=== PATIENT | female | born 1950 | race Caucasian/White ===

== ENCOUNTER 2023-11-06 08:38 | Inpatient (IN) | payer MEDICARE, OTHER, SELFPAY ==
[2023-11-04] VITALS (9 sets, daily range): BP systolic 96–142; BP diastolic 52–93; BMI 19.1
--- NOTE | 2023-11-04 11:52 | ED.GENMED ---
History of Present Illness
General
Chief Complaint: Failure to Thrive
Time Seen by Provider: 11/04/23 11:32
Travel History
Have you had any contact with someone who has COVID-19?: No
Do you have any symptoms of coronavirus? Fever > 100 degrees, chills, cough, shortness of breath, sore throat, loss of taste or smell, muscle aches, or headache?: No
History of Present Illness
History of Present Illness:
72-year-old female with history of widely metastatic lung cancer presents to the emergency department for evaluation of fatigue and poor p.o. intake. Resides at home with her son, he states that they are unable to get her to eat and drink and she
has progressively gotten weaker and weaker. Current ongoing chemotherapy through [facility]. Patient also reports progressive worsening right upper quadrant abdominal pain that she feels is due to known liver mets.
Pt of Dr Reynolds at [facility]
Past History
Past History
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
ED Past Surgical History: Gynecological (Partial hysterectomy with stage IV cancer)
Social History
Tobacco: Former smoker
Alcohol: None
Family History
Family History: Other (Reviewed and noncontributory)
Review of Systems
Review of Systems
Allergies reviewed?: Yes
All Other Systems: ROS reviewed and negative except as documented in HPI and ROS
Phy Exam
Physical Exam
Physical Exam:
GEN: Frail, cachectic, chronically ill-appearing
Eyes: PERRLA, EOMs intact, no scleral icterus
HENT: NCAT, oral mucosa profoundly dry
Lungs: CTAB, no wheezes, rales, rhonchi, normal chest wall excursion
Cardiac: Tachycardic, regular
Abdomen: Visible hepatomegaly, markedly tender to palpation
Neuro: AO x 3
MSK: No gross deformity or ecchymosis. No edema. No digital clubbing
Skin: No rashes, petechiae. Normal color, no pallor or jaundice.
Psych: Calm, cooperative, proper hygiene
Course
Orders/Labs/Results
Orders:
Orders
11/04/23 11:51
0.9% Sodium Chloride 500 ml [Nss] 500 ml IV BOLUS
11/04/23 12:04
CPK [Creatine Phosphokinase] Urgent
Complete Blood Count/With Diff Urgent
Comprehensive Metabolic Panel Urgent
11/04/23 12:56
CT Abd/Pel (IV only)-DH only Urgent
Comment:
Reason For Exam: RUQ pain, known liver mets
11/04/23 13:14
Add On - Microbiology Urgent
Tests Added?: urinalysis reflex to culture
11/04/23 15:31
Admit/Transfer Patient As Directed
Co-Sign Provider:
Level of Care: Observation services
Assign to:: Medical/Surgical
Physician / Group: josie husain
Diagnosis: dehydration
Reason for Hospitalization: dehydration
ONCOLOGY CONSULT Routine
Consulting Provider: Deandra Hawley
Was physician already notified: Yes
11/04/23 15:32
Code Status As Directed
Resuscitation Status: Full Code
11/04/23 17:25
0.9% Sodium Chloride 1000 ml [Nss] 1,000 ml IV 125 mls/hr
Hydrocodone 5/APAP 325 [[place] 5/325] 1 tablet PO Q6HPRN PRN
11/04/23 17:25
Case Management Consult ONCE
Case Management Consult: Hospice
Hospice: Evaluation and treat
Activity As Directed
Activity Level: As Tolerated
Vital Signs As Directed
Frequency: Per unit guidelines
DX Deep Vein Thrombosis Video Routine
11/04/23 18:00
Enoxaparin Sodium [Lovenox] 40 mg SC QPM
11/05/23 Breakfast
Regular
Complete Blood Count/No Diff IN AM
Comprehensive Metabolic Panel IN AM
Occupational Therapy Consult [Ot Eval And Treat] IN AM
Physical Therapy Consult [Pt Eval And Treat] IN AM
Activity Level: As Tolerated
11/05/23 08:00
FOLic ACID [Folvite] 1 mg PO DAILY
Abnormal Lab Results
11/04/23
12:04
WBC 12.1 H 10^3/uL
(4.8-10.8)
RBC 3.48 L 10^6/uL
(4.20-5.40)
Hgb 10.8 L g/dL
(12.0-16.0)
Hct 31.5 L %
(37.0-47.0)
RDW 18.6 H %
(11.5-14.5)
Abs Immat Gran (auto) 0.1 H 10^3/uL
(0-0.05)
Absolute Neuts (auto) 10.9 H 10^3/uL
(1.4-6.5)
Absolute Lymphs (auto) 0.9 L 10^3/uL
(1.2-3.4)
Immature Gran % 1.1 H %
(0-0.5)
Neutrophils % 89.5 H %
(42.2-75.2)
Lymphocytes % 7.2 L %
(20.5-51.1)
Sodium 134 L mmol/L
(135-145)
Carbon Dioxide 33 H mmol/L
(22-30)
BUN 37 H mg/dl
(7-17)
Creatinine 0.4 L mg/dL
(0.6-1.0)
Glucose 103 H mg/dl
(70-99)
Calcium 11.8 H mg/dl
(8.4-10.2)
AST 137 H U/L
(14-36)
ALT 69 H U/L
(0-35)
Alkaline Phosphatase 409 H U/L
(38-126)
Creatine Kinase < 20 L U/L
(30-135)
Total Protein 5.9 L g/dl
(6.3-8.2)
11/04/23 12:04
11/04/23 12:04
Vital Signs
Initial and Last Documented VS:
Initial Vital Signs
Temp Pulse Resp BP Pulse Ox
98.0 F 119 20 105/58 98
11/04/23 11:19 11/04/23 11:19 11/04/23 11:19 11/04/23 11:19 11/04/23 11:19
Last Documented Vital Signs
Temp Pulse Resp BP Pulse Ox
98 F 101 22 96/56 92
11/04/23 17:40 11/04/23 17:40 11/04/23 17:40 11/04/23 17:40 11/04/23 17:40
MDM/Problems Addressed
MDM/Problems Addressed:
Patient looks quite frail and cachectic, not tolerating much p.o. fluid intake. CT suggest some degree of decrease in disease, will admit to the hospitalist service, patient may benefit from hospice or palliative care consultation at this point
*Critical Care Note
Total Time (30-74mins, 75-104mins- exclusive of procedures): Not Applicable
ED Attending Note
-
Portions of this chart may have been created with voice recognition software.� Occasional wrong word or��sound alike� substitutions may have occurred due to the inherent limitations of voice recognition software.
Discharge Plan
Departure
Patient Disposition: Admit
Date of Disposition: 11/04/23
Time of Disposition: 14:32
Admit to: Med/Surg
Presentation/result/management discussed w/ accepting MD/DO: Hospitalist
Discharge Problem:
Adult failure to thrive, Metastatic primary lung cancer
Interventions
Interventions:
*Risk Screen - Suicide Last Done: 11/04/23 13:32
*General Assessment Last Done: 11/04/23 13:32
*Neglect/Abuse Screening Last Done: 11/04/23 13:32
ED- Fall Risk Assessment Last Done: 11/04/23 13:32
*ED COVID-19 Vaccine History Last Done: 11/04/23 13:32
*Nursing Disposition Last Done: 11/04/23 17:20
Discharge Date and Time
Discharge Date/Time: 11/04/23 17:21
[2023-11-04 12:16] LABS: % Basophils 0.2 % (0-2); % Immature Granulocytes 1.1 % (0-0.5); % Lymphocytes 7.2 % (20.5-51.1); % Neutrophils 89.5 % (42.2-75.2); Absolute Immature Granulocytes 0.1 10^3/uL (0-0.05); Absolute Lymphocytes 0.9 10^3/uL (1.2-3.4); Absolute Monocytes 0.2 10^3/uL (0.1-0.6); Absolute Neutrophils 10.9 10^3/uL (1.4-6.5); Hematocrit 31.5 % (37.0-47.0); Hemoglobin 10.8 g/dL (12.0-16.0); Mean Corp Hgb Conc. 34.3 g/dL (33.0-37.0); Mean Corpuscular Volume 90.5 fL (81.0-99.0); Mean Platelet Volume 9.4 fL (7.4-10.4); Nucleated Red Blood Cells % 0 %; Platelet Count 182 10^3/uL (130-400); Red Blood Cell Count 3.48 10^6/uL (4.20-5.40); Red Cell Dist. Width 18.6 % (11.5-14.5); White Blood Cell Count 12.1 10^3/uL (4.8-10.8)
--- NOTE | 2023-11-04 12:31 | PHANOTE ---
11/04/2023, [facility] [employer], spoke to pt. and pt.'s son to obtain pt.'s med. history; pt. states to be taking Keytruda Q3W at [facility]; was not able to confirm this med., dose, or frequency with another source.
[2023-11-04 12:38] LABS: ALT (SGPT) 69 U/L (0-35); AST (SGOT) 137 U/L (14-36); Albumin 3.5 g/dl (3.5-5.0); Alkaline Phosphatase 409 U/L (38-126); Blood Urea Nitrogen 37 mg/dl (7-17); Calcium 11.8 mg/dl (8.4-10.2); Carbon Dioxide 33 mmol/L (22-30); Chloride 99 mmol/L (98-107); Creatine Phosphokinase < 20 U/L (30-135); Glucose 103 mg/dl (70-99); Potassium 4.2 mmol/L (3.5-5.1); Sodium 134 mmol/L (135-145); Total Bilirubin 1.1 mg/dl (0.2-1.3); Total Protein 5.9 g/dl (6.3-8.2); eGFR > 60.00
[2023-11-04] MEDS: NSS 500 IV (12:40)
--- NOTE | 2023-11-04 14:58 | HPS.HSE ---
Addendum entered and electronically signed by Shawn Zaragoza MD 11/04/23 16:02:
I saw and examined the patient.
The CRANE HOOKER or PA's note was reviewed and I agree with the note.
Comment: 72-year-old female who was sent from her oncologist office for severe weakness and anorexia anorexia.
120/93, 108, 24, 98.0 F
NAD, awake and alert, appears chronically ill and malnourished
tachy, reg rhythm, normal S1/S2
CTAB anteriorly
+BS, abdominal exam is limited due to severe tenderness to palpation with guarding
CN2-12 intact
WBC 12.1, Hb 10.8, plt 182
Na 134, Cr 0.4
CT A/P: Compared to examination of October 08, 2023, interval decrease in size of multiple pulmonary nodules, suggesting positive response to therapy. Extensive hepatic metastatic disease. Hepatic masses are without significant interval change in
size, but many of these masses have a greater degree of central decreased density compared to previous CT, suggesting response to therapy and a degree of central necrosis. Stable right adrenal gland metastasis. No evidence for bowel obstruction or
free intraperitoneal air. Distention of the rectum with stool, transverse dimension of 6.6 cm. No convincing evidence for stercoral colitis.
Stage 4 adenocarcinoma along with significant liver metastases:
-Progress note from Dr. Reynolds reviewed. The pt was sent to the ER as she's not eating. His note states 'started talking about palliative care options.'
[facility] to see the pt tomorrow and discuss goals of care.
-IVFs, bowel regimen, pain control
Severe protein calorie malnutrition
Original Note:
Family Physician
-
Family Physician: Mayco Roth
Chief Complaint
-
generalized weakness, fatigue
History of Present Illness
72-year-old female with history of widely metastatic lung cancer COPD, GERD, hypertension, hyperlipidemia, presented to us with worsening fatigue weakness and poor oral intake. Patient was evaluated by her oncologist for routine visit, who
instructed her to go to the ER. She denied any headache, dizziness, syncopal episode. Patient denied any fever, chills, chest pain, short of breath. Patient has chronic abdominal pain, constipation from her cancer denied dysuria hematuria.�
Current ongoing chemotherapy through [facility].� Her last chemo was last week. She is due for chemo in [address] Reynolds at [facility]
Medical History
Past Medical History
Past Medical History: Reports Other
Additional Past Medical History:
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
Past Surgical History: Reports Other
Additional Past Surgical History:
Partial hysterectomy with stage IV cancer
Social History
Tobacco: Non-smoker
Alcohol: None
Drug: None
Personal: Single
Living: With Family
Family History
Family History: Not pertinent
Allergies / Home Medications
Allergies reflects when Allergies were last updated in [employer].
Home Medications with original date entered in [employer]
Allergy/Medication List:
Allergies
Allergy/AdvReac Type Severity Reaction Status Date / Time
methocarbamol [From Robaxin] Allergy Rash Verified 11/04/23 11:19
enviormental Allergy Unknown Uncoded 11/04/23 11:19
general anesthia Allergy Unknown Uncoded 11/04/23 11:19
medication for migraines Allergy Nausea / Uncoded 11/04/23 11:19
Vomiting
Home Medications
dexamethasone 4 mg tablet 4 mg PO UD 10/08/23
folic acid 1 mg tablet 1 mg PO DAILY 10/08/23
Keytruda 1 dose IV Q3W 11/04/23
denosumab 60 mg/mL subcutaneous syringe (Prolia) 60 mg SC [id number] 11/04/23
hydrocodone 5 mg-acetaminophen 325 mg tablet 1 tab PO Q6HPRN PRN moderate to severe pain 11/04/23
polyethylene glycol 3350 17 gram oral powder packet (Miralax) 17 g PO DAILY PRN constipation 11/04/23
Review of Systems
-
Constitutional: Reports Fatigue
EENT: Reports No Symptoms
Respiratory: Reports No Symptoms
Cardiac: Reports No Symptoms
Abdomen/GI: Reports No Symptoms and Abdominal Pain
: Reports No Symptoms
Musculoskeletal: Reports No Symptoms
Skin: Reports No Symptoms
Neurological: Reports No Symptoms
Endocrine: Reports No Symptoms
Hematologic/Lymphatic: Reports No Symptoms
Psych: Reports No Symptoms
Physical Exam
Vital Signs
Vital Signs
Temp Pulse Resp BP Pulse Ox
98.0 F 110 19 142/69 96
11/04/23 11:19 11/04/23 14:45 11/04/23 14:45 11/04/23 14:24 11/04/23 14:45
Physical Exam
General: Well Developed, Well Nourished and No Apparent Distress
HEENT: NormoCephalic, Moist mucous membranes and Atraumatic
Respiratory: Clear
Cardiac: S1/S2 and Regular Rhythm; No Murmur or Rub
GI: Soft, Non Tender, Non Distended and Normal Bowel Sounds; No Organomegaly
Rectal: Deferred by Provider
Musculoskeletal: No Clubbing, No Cyanosis and No Edema
Skin: No Rash
Neuro: Nonfocal/grossly intact
Psych: Calm
Laboratory Results
-
11/04/23 12:04
11/04/23 12:04
Laboratory Results
Total Bilirubin 1.1 mg/dl (0.2-1.3) 11/04/23 12:04
AST 137 U/L (14-36) H 11/04/23 12:04
ALT 69 U/L (0-35) H 11/04/23 12:04
Alkaline Phosphatase 409 U/L (38-126) H 11/04/23 12:04
Data Reviewed
-
Lab Data: Labs Reviewed by me
Impression/Plan
-
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
-Fluids continued for hydration
-Oncology consult
-PT,OT consult
-CM consulted
-on chemo
-hydrocodone continued for pain
-Dilaudid prn for pain
#thrush
-Diflucan 200mg po x1 then daily 100mg
# Tachycardia likely from dehydration
-Fluids continued
-CTM
# Anemia likely due to metastatic disease
-Hemoglobin 10.8
-No active bleeding
-Continue to monitor
# Chronic LFT elevation
-AST 137, ALT 69, ALK 409
-ctm
# DVT prophylaxis
-Lovenox
# CODE STATUS
-Full code
[2023-11-04] MEDS: DILAUDID 1 MG IV ×2 (16:45→20:52)
[2023-11-04] MEDS: DIFLUCAN 200 MG PO (17:05)
[2023-11-04] MEDS: FLEET MINERAL OIL ENEMA 133 ML RECTAL (17:05)
[2023-11-04] MEDS: NSS 1000 IV (17:39)
[2023-11-04] MEDS: LOVENOX 40 MG SC (18:16)
[2023-11-04] MEDS: COLACE PO (20:33)
[2023-11-04] MEDS: SENOKOT 17.1999999999999993 MG PO (22:02)
[2023-11-05] MEDS: DILAUDID 1 MG IV ×4 (01:20→18:43)
[2023-11-05] MEDS: NSS 1000 IV ×3 (01:20→17:22)
[2023-11-05 05:03] LABS: Hematocrit 25.4 % (37.0-47.0); Hemoglobin 8.7 g/dL (12.0-16.0); Mean Corp Hgb Conc. 34.3 g/dL (33.0-37.0); Mean Corpuscular Hgb 31.3 pg (27.0-31.0); Mean Corpuscular Volume 91.4 fL (81.0-99.0); Mean Platelet Volume 9.4 fL (7.4-10.4); Platelet Count 127 10^3/uL (130-400); Red Blood Cell Count 2.78 10^6/uL (4.20-5.40); Red Cell Dist. Width 18.8 % (11.5-14.5); White Blood Cell Count 9.4 10^3/uL (4.8-10.8)
[2023-11-05 05:34] LABS: ALT (SGPT) 49 U/L (0-35); AST (SGOT) 86 U/L (14-36); Albumin 2.5 g/dl (3.5-5.0); Alkaline Phosphatase 256 U/L (38-126); Blood Urea Nitrogen 21 mg/dl (7-17); Calcium 10.5 mg/dl (8.4-10.2); Carbon Dioxide 30 mmol/L (22-30); Chloride 104 mmol/L (98-107); Estimated Creatinine Clearance 67 ml/min; Glucose 91 mg/dl (70-99); Potassium 3.4 mmol/L (3.5-5.1); Sodium 138 mmol/L (135-145); Total Bilirubin 0.9 mg/dl (0.2-1.3); Total Protein 4.8 g/dl (6.3-8.2); eGFR > 60.00
[2023-11-05 06:15] VITALS: BP 91/57
[2023-11-05 08:03] VITALS: BP 118/63
--- NOTE | 2023-11-05 08:12 | CON.ONC ---
Addendum entered and electronically signed by Akin Peoples MD 11/05/23 08:43:
Hypercalcemia. Likely 2* malignancy. Improved overnight with hydration. Would benefit in getting Zometa. Will give 1st dose inpatient.
Original Note:
Impression
Impression
Stage IV adenocarcinoma along with lungs, liver, lymph nodes, adrenal metastases
Severe protein calorie malnutrition
Constipation
Poor PS
Plan
Plan
Patient with advanced stage IV metastatic lung cancer with widespread metastatic disease. Currently on first-line chemotherapy with carboplatin + Alimta + pembrolizumab immunotherapy. Patient has chronic abdominal pain, constipation, and is
admitted with failure to thrive and generalized weakness.
CT scan actually shows some early evidence of response to just 2 cycles of palliative chemoimmunotherapy.
She is full code and palliative care with hospice was discussed with patient by me based on what her primary oncologist felt would be most appropriate. Unfortunately, she became very angry and said that she does not wish to give up and is not
interested in hospice care at this time.
Reviewed her pathology report. She may be candidate for discontinuation of chemotherapy going forward and continuing immunotherapy alone if her performance status improves. She is a relatively high blood tumor mutational burden = 14 muts/MB. For
now continue hydration and supportive care. Pain medications as tolerated. As she is not DNR, concerned about respiratory depression if we go too high on narcotics. Discussed case with Dr. Gonzalo Reynolds her primary oncologist.
I anticipate she will only require short-term hospitalization as I am not able to find any specific acute reversible issues other than her underlying neoplastic disease.
Patient History
History of Present Illness
Oncology Consult from [facility]
Primary Oncologist: Dr. Gonzalo Reynolds ([facility])
Family Physician: Mayco Roth
CC: Generalized weakness and pain
HPI: 72-year-old female with stage IV lung cancer who recently started on carboplatin + Alimta + Keytruda (has received 2 cycles so far) who was sent from her oncologist office for severe weakness and anorexia. She also has diffuse chronic
abdominal pain. She has had worsening fatigue and poor oral intake. Patient was evaluated by her oncologist for routine visit, who instructed her to go to the ER. Pt of Dr Reynolds at [facility]
In the ER, she underwent a repeat CT A/P: Compared to examination of October 08, 2023, interval decrease in size of multiple pulmonary nodules, suggesting positive response to therapy. Extensive hepatic metastatic disease. Hepatic masses are without
significant interval change in size, but many of these masses have a greater degree of central decreased density compared to previous CT, suggesting response to therapy and a degree of central necrosis. Stable right adrenal gland metastasis. No
evidence for bowel obstruction or free intraperitoneal air. Distention of the rectum with stool, transverse dimension of 6.6 cm. No convincing evidence for stercoral colitis.
PMH:
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
PSH:
Partial hysterectomy
SH:
Tobacco: Former smoker
Alcohol: None
Drug: None
Personal:
Living: With Family
FH: Not pertinent
Patient Medication
Medication Instructions Recorded Confirmed Last Taken Type
dexamethasone 4 mg tablet 4 mg PO UD 10/08/23 11/04/23 10/30/23 History
folic acid 1 mg tablet 1 mg PO DAILY 10/08/23 11/04/23 11/04/23 History
Keytruda 1 dose IV Q3W 11/04/23 10/29/23 History
denosumab 60 mg/mL subcutaneous 60 mg SC [id number] 11/04/23 11/04/23 Unknown History
syringe (Prolia)
hydrocodone 5 mg-acetaminophen 325 1 tab PO Q6HPRN PRN moderate to 11/04/23 11/04/23 11/04/23 History
mg tablet severe pain
polyethylene glycol 3350 17 gram 17 g PO DAILY PRN constipation 11/04/23 11/04/23 Unknown History
oral powder packet (Miralax)
Active Medications
Generic Name Dose Route Start Last Admin
Trade Name Freq PRN Reason Stop Dose Admin
Hydrocodone Bitart/Acetaminophen 1 tablet 11/04/23 17:25
Hydrocodone 5 Mg/Acetaminophen 325 Mg Tablet PO 11/18/23 17:24
Q6HPRN PRN
moderate to severe pain
Docusate Sodium 100 mg 11/04/23 20:00 11/04/23 20:33
Docusate Sodium 100 Mg Capsule PO 12/02/23 19:59 Not Given
BID LETICIA
Enoxaparin Sodium 40 mg 11/04/23 18:00 11/04/23 18:16
Enoxaparin Sodium 40 Mg/0.4 Ml Syringe SC 12/02/23 17:59 40 mg
QPM LETICIA Administration
Fluconazole 100 mg 11/05/23 08:00
Fluconazole 100 Mg Tablet PO 11/15/23 07:59
DAILY LETICIA
Folic Acid 1 mg 11/05/23 08:00
Folic Acid 1 Mg Tablet PO 12/03/23 07:59
DAILY LETICIA
Hydromorphone HCl 1 mg 11/04/23 15:48 11/05/23 05:28
Hydromorphone 1 Mg/Ml Carpuject IV 11/18/23 15:47 1 mg
Q4HPRN PRN Administration
severe pain
Sodium Chloride 1,000 mls @ 125 mls/hr 11/04/23 17:25 11/05/23 01:20
Nss IV 1,000 mls
.Q8H LETCIIA Administration
Mineral Oil 133 ml 11/04/23 17:25
Mineral Oil (Fleet) Enema 133 Ml (4.5 Oz) RECTAL 12/02/23 17:24
DAILYPRN PRN
constipation
Sennosides 17.2 mg 11/04/23 22:00 11/04/23 22:02
Sennosides (Senokot) 8.6 Mg Tablet PO 12/02/23 21:59 17.2 mg
HS LETICIA Administration
Sodium Chloride 0 flush 11/04/23 18:00
Sodium Chloride 0.9% (Flush) Syringe IV 12/02/23 17:59
PER PROTOCOL LETICIA
Physical Exam
-
General: Pain, Appears Chronically Ill and Cachetic
Cardiology: S1 and S2
Pulmonary: Clear
GI: Soft
Extremities: No C/C/E
Labs
Lab Results
WBC 9.4 10^3/uL (4.8-10.8) 11/05/23 04:54
RBC 2.78 10^6/uL (4.20-5.40) L 11/05/23 04:54
Hgb 8.7 g/dL (12.0-16.0) L 11/05/23 04:54
Hct 25.4 % (37.0-47.0) L 11/05/23 04:54
MCV 91.4 fL (81.0-99.0) 11/05/23 04:54
MCH 31.3 pg (27.0-31.0) H 11/05/23 04:54
MCHC 34.3 g/dL (33.0-37.0) 11/05/23 04:54
RDW 18.8 % (11.5-14.5) H 11/05/23 04:54
Plt Count 127 10^3/uL (130-400) L D 11/05/23 04:54
MPV 9.4 fL (7.4-10.4) 11/05/23 04:54
Abs Immat Gran (auto) 0.1 10^3/uL (0-0.05) H 11/04/23 12:04
Absolute Neuts (auto) 10.9 10^3/uL (1.4-6.5) H 11/04/23 12:04
Absolute Lymphs (auto) 0.9 10^3/uL (1.2-3.4) L 11/04/23 12:04
Absolute Monos (auto) 0.2 10^3/uL (0.1-0.6) 11/04/23 12:04
Absolute Eos (auto) 0.0 10^3/uL (0-0.7) 11/04/23 12:04
Absolute Basos (auto) 0.0 10^3/uL (0-0.2) 11/04/23 12:04
Immature Gran % 1.1 % (0-0.5) H 11/04/23 12:04
Neutrophils % 89.5 % (42.2-75.2) H 11/04/23 12:04
Lymphocytes % 7.2 % (20.5-51.1) L 11/04/23 12:04
Monocytes % 2.0 % (1.7-9.3) 11/04/23 12:04
Eosinophils % 0.0 % (0-6) 11/04/23 12:04
Basophils % 0.2 % (0-2) 11/04/23 12:04
Creatinine 0.2 mg/dL (0.6-1.0) L 11/05/23 04:54
Vital Signs
Vital Signs
Temp Pulse Resp BP Pulse Ox
97.5 F 104 22 118/63 93
11/05/23 08:03 11/05/23 08:03 11/05/23 08:03 11/05/23 08:03 11/05/23 08:03
--- NOTE | 2023-11-05 08:14 | W.PN.HOSP.TC ---
Today's Communication/Plan
-
see bold
Assessment / Plan
Assessment / Plan
Gen: Appears in pain, appears severely malnourished and cachectic, awake and alert
Eyes: EOMI, PERRLA, no scleral icterus.
Neck: supple.
CV: Tachycardic, regular rhythm, +S1/S2, no m/r/g.
Resp: CTAB, no rales, wheezes, or rhonchi.
Abd: +BS, abdominal exam is limited due to severe tenderness to palpation with guarding
Skin: No rashes.
Neuro: CN 2-12 intact, non-focal.
Psych: Slightly anxious
CT A/P: Compared to examination of October 08, 2023, interval decrease in size of multiple pulmonary nodules, suggesting positive response to therapy. Extensive hepatic metastatic disease. Hepatic masses are without significant interval change in
size, but many of these masses have a greater degree of central decreased density compared to previous CT, suggesting response to therapy and a degree of central necrosis. Stable right adrenal gland metastasis. No evidence for bowel obstruction or
free intraperitoneal air. Distention of the rectum with stool, transverse dimension of 6.6 cm. No convincing evidence for stercoral colitis.
Stage 4 adenocarcinoma along with significant liver metastases:
-Progress note from Dr. Reynolds reviewed. The pt was sent to the ER as she's not eating. His note states 'started talking about palliative care options.'
-Case discussed at length with Dr. Peoples. Patient wants to remain full code and continue cancer directed therapies. She may be a candidate for immunotherapy.
-Continue IV fluids for hypercalcemia of malignancy. Zometa ordered.
-Start OxyContin 10mg PO Q8H, cont IV Dilaudid PRN
-cont bowel regimen, add Miralax
Other problems:
Severe protein calorie malnutrition
Oral thrush: stop Diflucan, start Nystatin s/s
Anemia of chronic disease, trend Hb
Chronic LFT elevation due to metastatic disease
FULL/Lovenox
Total time spent on today's encounter was 50 minutes which included time spent in counseling the patient/family regarding diagnosis and treatment plan as listed above, goals of care, and symptom management. Case was discussed with nursing staff,
specialists, and care coordinators/case management. All labs and imaging personally reviewed by me. Remainder the time spent in detailed review of previous records, lab data, imaging, and other medical provider documentation.
Anticipated Discharge: 24 - 48 hours
Subjective/Interval History
-
Date of Service: November 05, 2023
c/o severe abd pain
Objective Data
-
Labs:
Laboratory Results
11/05/23
04:54
WBC 9.4
Hgb 8.7 L
Hct 25.4 L
Plt Count 127 L D
Sodium 138
Potassium 3.4 L
Chloride 104
Carbon Dioxide 30
BUN 21 H
Creatinine 0.2 L
Glucose 91
Calcium 10.5 H
Total Bilirubin 0.9
AST 86 H
ALT 49 H
Alkaline Phosphatase 256 H
Vital Signs:
Vital Signs
Temp Pulse Resp BP Pulse Ox
97.5 F 104 22 118/63 93
11/05/23 08:03 11/05/23 08:03 11/05/23 08:03 11/05/23 08:03 11/05/23 08:03
I&O
11/04/23 11/05/23 11/06/23
06:59 06:59 06:59
Intake Total 1740 / 1740
Balance 1740 / 1740
[2023-11-05] MEDS: FOLVITE 1 MG PO (08:33)
[2023-11-05] MEDS: COLACE 100 MG PO (08:33)
[2023-11-05] MEDS: KLOR-CON 40 MEQ PO (08:34)
[2023-11-05] MEDS: MYCOSTATIN ORAL SUSPENSION 5 ML PO ×3 (08:35→23:00)
[2023-11-05] MEDS: ZOMETA 105 MG IV (09:50)
--- NOTE | 2023-11-05 10:23 | CM ---
Reviewed the chart notes and spoke with the patient at the beside. CM consult for hospice received. Patient being admitted under observational status. [facility] letter provided and explained. The patient had no questions with regards to the letter.
The patient is not interested in hospice at this time. The patient resides with her son in a two story home with three steps to enter. The patient report no DME/VN/SNF in the past. The patient confirmed her pharmacy of choice is the [facility] [address]
[facility]. CM continues to be available to patient/family and is monitoring medical plan for needs at discharge.
Plan: Discharge plans will depend on the patient's progress.
[2023-11-05 11:11] VITALS: BMI 19.1
[2023-11-05] MEDS: OXYCONTIN (CONTROLLED RELEASE) 10 MG PO ×2 (11:30→17:18)
[2023-11-05] MEDS: MIRALAX PO ×2 (11:30→11:42)
[2023-11-05] MEDS: MYCOSTATIN ORAL SUSPENSION PO (13:22)
[2023-11-05 15:06] VITALS: BP 98/56
[2023-11-05 15:45] VITALS: BP 106/60; BP 81/44; PULSE 103; PULSE 91
[2023-11-05 15:46] VITALS: BP 81/44; PULSE 91; O2SAT 100
[2023-11-05] MEDS: LOVENOX 40 MG SC (17:18)
[2023-11-05] MEDS: COLACE PO (21:49)
[2023-11-05] MEDS: SENOKOT PO (22:02)
[2023-11-05 23:10] VITALS: BP 110/64
[2023-11-06] MEDS: OXYCONTIN (CONTROLLED RELEASE) 10 MG PO ×3 (01:11→18:38)
[2023-11-06] MEDS: COLACE PO ×2 (08:15→08:21)
[2023-11-06] MEDS: FOLVITE 1 MG PO (08:16)
[2023-11-06] MEDS: MYCOSTATIN ORAL SUSPENSION 5 ML PO ×4 (08:17→21:43)
[2023-11-06] MEDS: MIRALAX PO ×2 (08:17→08:22)
--- NOTE | 2023-11-06 08:39 | W.PN.HOSP.TC ---
Today's Communication/Plan
-
possible d/c later today
Assessment / Plan
Assessment / Plan
Gen: Appears in pain, appears severely malnourished and cachectic, awake and alert
Eyes: EOMI, PERRLA, no scleral icterus.
Neck: supple.
CV: RRR, +S1/S2, no m/r/g.
Resp: CTAB, no rales, wheezes, or rhonchi.
Abd: +BS, abdominal exam is limited due to tenderness to palpation with guarding
Skin: No rashes.
Neuro: CN 2-12 intact, non-focal.
Psych: Slightly anxious (but improved from yesterday)
CT A/P: Compared to examination of October 08, 2023, interval decrease in size of multiple pulmonary nodules, suggesting positive response to therapy. Extensive hepatic metastatic disease. Hepatic masses are without significant interval change in
size, but many of these masses have a greater degree of central decreased density compared to previous CT, suggesting response to therapy and a degree of central necrosis. Stable right adrenal gland metastasis. No evidence for bowel obstruction or
free intraperitoneal air. Distention of the rectum with stool, transverse dimension of 6.6 cm. No convincing evidence for stercoral colitis.
Stage 4 adenocarcinoma along with significant liver metastases:
-Progress note from Dr. Reynolds reviewed. The pt was sent to the ER as she's not eating. His note states 'started talking about palliative care options.'
-Case discussed at length with Dr. Peoples. Patient wants to remain full code and continue cancer directed therapies. She may be a candidate for immunotherapy.
-Continue IV fluids for hypercalcemia of malignancy. Zometa given 11/05/23.
-cont OxyContin 10mg PO Q8H, cont IV Dilaudid PRN
-cont bowel regimen, add Miralax
Other problems:
Hyponatremia, resolved
Severe protein calorie malnutrition
Oral thrush: cont Nystatin s/s
Anemia of chronic disease, trend Hb
Chronic LFT elevation due to metastatic disease
FULL/Lovenox
Anticipated Discharge: Within 24 hours
Subjective/Interval History
-
Date of Service: November 06, 2023
c/o rectal pain. Abd pain improving.
Objective Data
-
Vital Signs:
Vital Signs
Temp Pulse Resp BP Pulse Ox
98.5 F 99 17 110/64 94
11/05/23 23:10 11/05/23 23:10 11/05/23 23:10 11/05/23 23:10 11/05/23 23:10
I&O
11/05/23 11/06/23 11/07/23
06:59 06:59 06:59
Intake Total 1740 / 1740 1550 / 1550
Balance 1740 / 1740 1550 / 1550
[2023-11-06 08:55] VITALS: BP 113/59
[2023-11-06 09:48] LABS: Hematocrit 24.6 % (37.0-47.0); Hemoglobin 8.4 g/dL (12.0-16.0); Mean Corp Hgb Conc. 34.1 g/dL (33.0-37.0); Mean Corpuscular Hgb 31.7 pg (27.0-31.0); Mean Corpuscular Volume 92.8 fL (81.0-99.0); Mean Platelet Volume 9.9 fL (7.4-10.4); Platelet Count 103 10^3/uL (130-400); Red Blood Cell Count 2.65 10^6/uL (4.20-5.40); Red Cell Dist. Width 18.2 % (11.5-14.5); White Blood Cell Count 9.4 10^3/uL (4.8-10.8)
[2023-11-06 09:59] LABS: Blood Urea Nitrogen 7 mg/dl (7-17); Calcium 9.7 mg/dl (8.4-10.2); Carbon Dioxide 32 mmol/L (22-30); Chloride 102 mmol/L (98-107); Estimated Creatinine Clearance 67 ml/min; Glucose 89 mg/dl (70-99); Potassium 3.1 mmol/L (3.5-5.1); Sodium 135 mmol/L (135-145); eGFR > 60.00
--- NOTE | 2023-11-06 10:07 | W.PN.ONC ---
Addendum entered and electronically signed by Son Hansen DO 11/06/23 15:59:
Patient independently examined and chart reviewed. Agree with the impression and plan as outlined by PUBLIC HEALTH OFFICER. Continue supportive measures and pain control. Bowel management protocol accepted by patient today. Goals of care support and improve
performance status such that she may be able to consider additional therapy.
Original Note:
Today's Communication / Plan
-
Currently on first-line chemotherapy with Carboplatin + Alimta + Pembrolizumab immunotherapy
Continue folic acid daily
Transfuse as needed to maintain Hgb >7, PLT >20
2/8 Calcium 9.7 s/p IVF
Received Zometa
Pain management
Bowel regimen - patient refusing Miralax/Colace this morning
She is not interested in hospice at this time. remains full code
Continue supportive care
Discharge plans in process. Patient to follow up with Dr. Reynolds ([place]) as scheduled.
Impression
Impression
Stage IV adenocarcinoma of the lung w/ liver, lymph nodes, adrenal metastases (on Carbo/Alimta/Keytruda)
Severe protein calorie malnutrition
Constipation (acute on chronic)
Hypercalcemia (resolving s/p IVF)
Hypokalemia
Profound weakness
Failure to thrive
Subjective/Objective
Subjective/Objective
Patient is laying in bed. nursing students completed AM care. She reports rectal pain/burning due to leakage of liquid stool. She also reports constipation however per nursing she refused miralax and colace this morning. Nursing notes excoriated
rectum. patient reports she is tired.
Vital Signs:
Vital Signs
Temp Pulse Resp BP Pulse Ox
98.5 F 84 15 113/59 97
11/06/23 08:55 11/06/23 08:55 11/06/23 08:55 11/06/23 08:55 11/06/23 08:55
physical exam
aaox3, cachectic, appears uncomfortable/chronically ill
HRR, lungs dim/clear
hypoactive bowel sounds
no edema. purewick device in place, myra urine output
Lab Results:
Laboratory Data
WBC 9.4 10^3/uL (4.8-10.8) 11/06/23 09:35
Hgb 8.4 g/dL (12.0-16.0) L 11/06/23 09:35
Plt Count 103 10^3/uL (130-400) L 11/06/23 09:35
eGFR > 60.00 11/06/23 09:35
2/[address]: Compared to examination of October 08, 2023, interval decrease in size of multiple pulmonary nodules, suggesting positive response to therapy.Extensive hepatic metastatic disease. Hepatic masses are without significant interval change in
size, but many of these masses have a greater degree of central decreased density compared to previous CT, suggesting response to therapy and a degree of central necrosis.
Stable right adrenal gland metastasis.No evidence for bowel obstruction or free intraperitoneal air.Distention of the rectum with stool, transverse dimension of 6.6 cm. No convincing evidence for stercoral colitis.
[2023-11-06] MEDS: MIRALAX 17 GRAMS PO (10:49)
[2023-11-06] MEDS: COLACE 100 MG PO ×2 (10:49→20:04)
--- NOTE | 2023-11-06 11:31 | CM ---
CM met with patient bedside, discussed PT recommendation of SNF. Patient reports she is not able to make any decisions or discuss SNF until her rectum is fixed. CM respected patients wishes, CM reports she will come back to see patient later to
discuss SNF/make referrals. CM offered to call patients family, patient not agreeable to this at this time. CM will continue to follow for discharge planning needs.
Plan; SNF pending accepting facilities if patient is agreeable.
--- NOTE | 2023-11-06 11:40 | CON.GI ---
Addendum entered and electronically signed by Hitesh Lua MD 11/06/23 13:11:
Patient seen and examined, agree with nurse practitioner note. Patient with history of metastatic lung cancer presents with poor oral intake. Has been complaining of rectal pain along with leakage of stool. On exam she has fecal impaction, though
abdominal exam is benign. CT scan showed extensive hepatic metastatic disease without significant change, with a distended rectum with stool. At this point we discussed enemas, can repeat, may require manual disimpaction along with local care.
Original Note:
Consultation
-
Date/Time Consultation Requested: 11/06/231129
Date/Time Consultation Performed: 11/06/231129
Requesting Provider: Shawn Zaragoza MD
Performing Provider: RADHA Reyna, Everardo Lua MD
Reason for Consultation: change in bowel habit
Medical History
Chief Complaint / HPI
Chief Complaint: diarrhea and constipation
History of Present Illness:
Pt is a 72yo presents with hx stage IV adenocarcinoma of lung with mets to liver, lymph nodes, adrenal mets on carbo, Alimta, and keytruda, bladder CA, uterine CA, recent covid, COPD, RSD presents with poor oral intake. She is noted with thrush
and follow up CT completed 11/04 decrease pulm nodules with response to therapy with extensive hepatic mets without change in size with central necrosis, no obstruction but distention of rectum with stool and asked to eval.
Pt admits to constipation but recent leakage and diarrhea. She also complaints of severe rectal discomfort with symptoms. She has occasional dysphagia, but otherwise denies nausea, vomiting, abdominal pain, blood or black in stools. Hx
colonoscopy years ago and recall neg Cologuard in last year. She denies hx EGD.
Past Medical History
Past Medical History: Cancer (poorly differentiated lung adeno CA with mets to lung, liver, lymph nodes, bladder tumor, uterine CA), COPD, GERD, HTN, Hypercholesterolemia and Other (RSD, Covid, osteoporsis)
Social History
Tobacco: Former Smoker
Alcohol: None
Drug: None
Living: With Family (son)
Employment: Retired
Family History
Family History: Other (son with hx ' GI issues')
Allergies / Home Medications
Allergy/AdvReac Type Severity Reaction Status Date / Time
methocarbamol [From Robaxin] Allergy Rash Verified 11/04/23 11:19
enviormental Allergy Unknown Uncoded 11/04/23 11:19
general anesthia Allergy Unknown Uncoded 11/04/23 11:19
medication for migraines Allergy Nausea / Uncoded 11/04/23 11:19
Vomiting
Medication Instructions Recorded
dexamethasone 4 mg tablet 4 mg PO UD 10/08/23
folic acid 1 mg tablet 1 mg PO DAILY 10/08/23
Keytruda 1 dose IV Q3W 11/04/23
denosumab 60 mg/mL subcutaneous 60 mg SC Z1HCGVSA 11/04/23
syringe (Prolia)
hydrocodone 5 mg-acetaminophen 325 1 tab PO Q6HPRN PRN moderate to 11/04/23
mg tablet severe pain
polyethylene glycol 3350 17 gram 17 g PO DAILY PRN constipation 11/04/23
oral powder packet (Miralax)
Review of Systems
-
History Source: Patient
Constitutional: Reports Weight Loss (20 lbs last few months )
EENT: Reports No Symptoms and Tearing
Respiratory: Reports Cough and Trouble Breathing
Cardiac: Reports No Symptoms
Abdomen/GI: Reports Diarrhea, Constipated and Other (decreased appetite )
: Reports No Symptoms
Musculoskeletal: Reports No Symptoms
Skin: Reports No Symptoms
Neurological: Reports Weakness
Endocrine: Reports No Symptoms
Hematologic/Lymphatic: Reports No Symptoms
Vital Signs
Temp Pulse Resp BP Pulse Ox
98.5 F 84 15 113/59 97
11/06/23 08:55 11/06/23 08:55 11/06/23 08:55 11/06/23 08:55 11/06/23 08:55
Physical Exam
Exam
General: Other (thin appearing with some distress with rectal discomfort)
HEENT: Normocephalic and Anicteric
Respiratory: Other (course cough, short of breath at rest, unable to talk through full sentence without )
Cardiac: Regular Rhythm
GI: Soft, Non Distended and Tender (mild)
Rectal: Other (marked redness around rectal area with severe tenderness with limited rectal exam-- internally large impaction of brown stool with liquid stool leaking from rectum)
Musculoskeletal: No Clubbing and No Cyanosis
Skin: Warm and Dry
Neuro: Awake, Alert and AO x 3
Psych: Calm
Results
WBC 9.4 10^3/uL (4.8-10.8) 11/06/23 09:35
Hgb 8.4 g/dL (12.0-16.0) L 11/06/23 09:35
Hct 24.6 % (37.0-47.0) L 11/06/23 09:35
MCV 92.8 fL (81.0-99.0) 11/06/23 09:35
Plt Count 103 10^3/uL (130-400) L 11/06/23 09:35
Absolute Neuts (auto) 10.9 10^3/uL (1.4-6.5) H 11/04/23 12:04
Sodium 135 mmol/L (135-145) 11/06/23 09:35
Potassium 3.1 mmol/L (3.5-5.1) L 11/06/23 09:35
Chloride 102 mmol/L (98-107) 11/06/23 09:35
Carbon Dioxide 32 mmol/L (22-30) H 11/06/23 09:35
BUN 7 mg/dl (7-17) 11/06/23 09:35
Creatinine 0.3 mg/dL (0.6-1.0) L 11/06/23 09:35
Calcium 9.7 mg/dl (8.4-10.2) 11/06/23 09:35
Total Bilirubin 0.9 mg/dl (0.2-1.3) 11/05/23 04:54
AST 86 U/L (14-36) H 11/05/23 04:54
ALT 49 U/L (0-35) H 11/05/23 04:54
Alkaline Phosphatase 256 U/L (38-126) H 11/05/23 04:54
Diagnostic Image Results:
11/04/23 �CT Abd/Pel (IV only)-DH only
Compared to examination of October 08, 2023, interval decrease in size of multiple pulmonary nodules, suggesting positive response to therapy.
Extensive hepatic metastatic disease. Hepatic masses are without significant interval change in size, but many of these masses have a greater degree of central decreased density compared to previous CT, suggesting response to therapy and a degree of
central necrosis.
Stable right adrenal gland metastasis.
No evidence for bowel obstruction or free intraperitoneal air.
Distention of the rectum with stool, transverse dimension of 6.6 cm. No convincing evidence for stercoral colitis.
Prior GI Procedures:
EGD: none
Colonoscopy: several years ago recalls as normal
Assessment / Plan
-
Pt is a 72yo presents with hx stage IV adenocarcinoma of lung with mets to liver, lymph nodes, adrenal mets on , bladder CA, uterine CA, recent covid, COPD, RSD presents with poor oral intake. She is noted with thrush and follow up CT completed
11/04 decrease pulm nodules with response to therapy with extensive hepatic mets without change in size with central necrosis, no obstruction but distention of rectum with stool and asked to eval.
-fecal impaction with overflow diarrhea
-local rectal irritation with impaction
-decreased oral intakes with failure to thrive
-oral thrush
-stage IV adeno CA lung with mets to liver, lymph node, adrenal mets on carbo, Alimta, and Keytruda
-elevated LFT's
-anemia
-thrombocytopenia
hypokalemia
other medical problems:
-recent covid
-COPD
-RSD
-bladder CA
-uterine CA
PLAN:
etiology of symptom with noted fecal impaction on exam -- exacerbated by decreased oral intakes, narcotics, current chemo, immobility etc
with increased tenderness unable to disimpact on exam
reviewed with nursing staff-- apply local cream protective barrier to protect skin
give Dulcolax next then MOM enema -- if not effective give 2nd enema in 8 hours
if still not effective attempt for manual disimpaction
remain on senna at HS, dulcolax BID and Miralax daily
cont Nystatin for oral thrush
limit narcotics as able
replete K
will follow
-
-
Thank you for consultation and allowing me to participate in the patient's care. Please call the recreation facilities supervisor GI physician during the after hours with any questions or concerns.
[2023-11-06 11:46] VITALS: BP 114/64
[2023-11-06] MEDS: DILAUDID 1 MG IV (14:06)
[2023-11-06] MEDS: DULCOLAX 10 MG RECTAL (14:06)
[2023-11-06 15:02] VITALS: BP 106/61
--- NOTE | 2023-11-06 16:37 | PTCARENOTE ---
500 mL Milk and Molasses Enema ordered, explained procedure to patient and patient tolerated 400 mL of enema. Patient tearful and request staff to stop. Patients rectal area red with MASD and uncomfortable with any wiping to area. Barrier cream
applied PRN. 1 assist out of bed to bedside commode. Patient passed brown gritty liquid and 2 small pebble like stools.
[2023-11-06] MEDS: LOVENOX 40 MG SC (18:38)
[2023-11-06] MEDS: SENOKOT 17.1999999999999993 MG PO (21:42)
[2023-11-06] MEDS: NSS 500 IV (23:18)
[2023-11-06 23:30] VITALS: BP 85/50
[2023-11-07] VITALS (7 sets, daily range): BP systolic 92–109; BP diastolic 50–64; PULSE 98; O2SAT 97
[2023-11-07] MEDS: OXYCONTIN (CONTROLLED RELEASE) 10 MG PO ×3 (01:44→17:49)
[2023-11-07 05:33] LABS: Hematocrit 24.4 % (37.0-47.0); Hemoglobin 8.2 g/dL (12.0-16.0); Mean Corp Hgb Conc. 33.6 g/dL (33.0-37.0); Mean Corpuscular Hgb 31.3 pg (27.0-31.0); Mean Corpuscular Volume 93.1 fL (81.0-99.0); Red Blood Cell Count 2.62 10^6/uL (4.20-5.40); Red Cell Dist. Width 18.5 % (11.5-14.5); White Blood Cell Count 8.1 10^3/uL (4.8-10.8)
--- NOTE | 2023-11-07 05:36 | W.PN.HOSP.TC ---
Addendum entered and electronically signed by Shawn Zaragoza MD 11/07/23 12:25:
Stage 1 sacrum pressure injury
Original Note:
Today's Communication/Plan
-
see bold
Assessment / Plan
Assessment / Plan
Gen: Appears in pain, appears severely malnourished and cachectic, awake and alert
Eyes: EOMI, PERRLA, no scleral icterus.
Neck: supple.
CV: Remains RRR, +S1/S2, no m/r/g.
Resp: Remains CTAB, no rales, wheezes, or rhonchi.
Abd: +BS, abdominal exam is limited due to tenderness to palpation with guarding
Skin: No rashes.
Neuro: CN 2-12 intact, non-focal.
Psych: Normal mood and affect
CT A/P: Compared to examination of October 08, 2023, interval decrease in size of multiple pulmonary nodules, suggesting positive response to therapy. Extensive hepatic metastatic disease. Hepatic masses are without significant interval change in
size, but many of these masses have a greater degree of central decreased density compared to previous CT, suggesting response to therapy and a degree of central necrosis. Stable right adrenal gland metastasis. No evidence for bowel obstruction or
free intraperitoneal air. Distention of the rectum with stool, transverse dimension of 6.6 cm. No convincing evidence for stercoral colitis.
Stage 4 adenocarcinoma along with significant liver metastases:
-Progress note from Dr. Reynolds reviewed. The pt was sent to the ER as she's not eating. His note states 'started talking about palliative care options.'
-Case discussed at length with Dr. Peoples. Patient wants to remain full code and continue cancer directed therapies. She may be a candidate for immunotherapy.
-s/p IVFs for hypercalcemia of malignancy. Zometa given 11/05/23.
-cont OxyContin 10mg PO Q8H
-stop IV Dilaudid, transition to oxycodone PRN
-cont bowel regimen
Fecal impaction:
-appreciate GI
-bowel regimen
-enemas PRN
Hypokalemia:
-80meq K today
Other problems:
Hyponatremia, resolved
Severe protein calorie malnutrition
Oral thrush: cont Nystatin s/s
Anemia of chronic disease, trend Hb
Chronic LFT elevation due to metastatic disease
FULL/Lovenox
Anticipated Discharge: Within 24 hours
Subjective/Interval History
-
Date of Service: November 07, 2023
Patient with multiple bowel movements overnight. Complains of rectal pain.
Objective Data
-
Labs:
Laboratory Results
11/07/23
04:52
WBC Pending
Hgb Pending
Hct Pending
Plt Count Pending
Sodium Pending
Potassium Pending
Chloride Pending
Carbon Dioxide Pending
BUN Pending
Creatinine Pending
Glucose Pending
Calcium Pending
Vital Signs:
Vital Signs
Temp Pulse Resp BP Pulse Ox
97.7 F 105 20 98/50 94
11/06/23 23:30 11/07/23 00:02 11/06/23 23:30 11/07/23 00:02 11/06/23 23:30
I&O
11/05/23 11/06/23 11/07/23
06:59 06:59 06:59
Intake Total 1740 / 1740 1550 / 1550 420 / 420
Balance 1740 / 1740 1550 / 1550 420 / 420
[2023-11-07 05:37] LABS: Blood Urea Nitrogen 10 mg/dl (7-17); Calcium 9.3 mg/dl (8.4-10.2); Carbon Dioxide 34 mmol/L (22-30); Chloride 104 mmol/L (98-107); Estimated Creatinine Clearance 67 ml/min; Glucose 102 mg/dl (70-99); Potassium 2.9 mmol/L (3.5-5.1); Sodium 137 mmol/L (135-145); eGFR > 60.00
[2023-11-07 05:54] LABS: Albumin 2.6 g/dl (3.5-5.0); Magnesium 2.3 mg/dl (1.6-2.3)
[2023-11-07] MEDS: KCL 40 MEQ PO ×2 (06:16→10:26)
[2023-11-07] MEDS: MIRALAX 17 GRAMS PO ×2 (07:41→20:06)
[2023-11-07] MEDS: ROXICODONE 5 MG PO (07:41)
[2023-11-07] MEDS: FOLVITE 1 MG PO (07:41)
[2023-11-07] MEDS: MYCOSTATIN ORAL SUSPENSION 5 ML PO ×3 (07:42→21:04)
[2023-11-07] MEDS: COLACE 100 MG PO ×2 (07:42→20:06)
[2023-11-07 08:27] LABS: Mean Platelet Volume 10.6 fL (7.4-10.4); Platelet Count 89 10^3/uL (130-400)
--- NOTE | 2023-11-07 10:06 | W.PN.ONC ---
Today's Communication / Plan
-
Currently on first-line chemotherapy with Carboplatin + Alimta + Pembrolizumab immunotherapy
Continue folic acid daily
11/07 Hgb 8.2, PLTs 89
Transfuse as needed to maintain Hgb >7, PLT >20
11/07 Calcium 9.3 s/p IVF, Zometa
PT/OT, OOB as tolerated
Discharge panning to SNF
Patient to follow up with Dr. Reynolds ([place]) as scheduled.
Impression
Impression
Stage IV adenocarcinoma of the lung w/ liver, lymph nodes, adrenal metastases (on Carbo/Alimta/Keytruda)
Severe protein calorie malnutrition
Constipation (acute on chronic)
Hypercalcemia (resolving s/p IVF)
Hypokalemia
Profound weakness
Failure to thrive
Subjective/Objective
Subjective/Objective
She is OOB to the chair. Patient reports that she was able to 'remove stool' while on the toilet and her rectal pain has resolved. She is tolerating ice chips/water. She endorses weakness.
Vital Signs:
Vital Signs
Temp Pulse Resp BP Pulse Ox
97.6 F 101 18 96/59 96
11/07/23 07:25 11/07/23 07:25 11/07/23 07:25 11/07/23 07:25 11/07/23 07:25
physical exam unchanged.
Lab Results:
Laboratory Data
WBC 8.1 10^3/uL (4.8-10.8) 11/07/23 04:52
Hgb 8.2 g/dL (12.0-16.0) L 11/07/23 04:52
Plt Count 89 10^3/uL (130-400) L 11/07/23 04:52
eGFR > 60.00 11/07/23 04:52
--- NOTE | 2023-11-07 10:45 | PN.CDI ---
CDI
- -
CDI:
Physician Documentation Request
Admit Date: 11/06/23 08:38
Dear Doctor Nik,
Please review the following and provide your response in the progress notes.
Clinical Indicators:
- 11/06 RN skin assessment indicates Stage 1 sacrum pressure injury
Physician documentation of the type and location of wounds is required for compliant documentation. Based on the above clinical findings and your assessment, please provide the following in your progress note:
1. Location of the ulcer/wound, including laterality.
2. Type (etiology) of ulcer/wound:
- Diabetic ulcer
- Arterial (ischemic) ulcer
- Traumatic wound
- Venous stasis ulcer
- Pressure (decubitus) ulcer
- Non-healing surgical wound
- Other
- Unable to determine
Use of terms such as suspected, likely, concern for, or probable (associated with a specific diagnosis that is being evaluated, monitored, or treated as if it exists) are acceptable and can be coded in the inpatient setting, when documented at the
time of discharge.
Thank you,
Stevie Herrera RN
CDI Specialist
Please use your independent medical judgment in providing your response.
*Source: National Pressure Ulcer Advisory Panel (NPUAP)
--- NOTE | 2023-11-07 12:46 | W.PN.GI.CBS2 ---
Addendum entered and electronically signed by Anaid Mukherjee MD 11/07/23 16:08:
I saw and examined the patient.
The DAT INSTRUCTOR or PA's note was reviewed and I agree with the note.
Comment: Patient had good bowel movement today, moderate brown formed stool
On a regular diet.
Currently on MiraLAX 17 g twice a day, Senokot at night and Colace 100 mg twice daily for bowel regimen given she is on narcotics.
Above regimen seems to be working. I would continue that.
Okay to give milk of molasses enema as needed
Will sign off, please call back if needed
Original Note:
Today's Communication / Plan
-
Check Abd Xray
Increase miralax
Assessment / Plan
-
Pt is a 72yo presents with hx stage IV adenocarcinoma of lung with mets to liver, lymph nodes, adrenal mets on , bladder CA, uterine CA, recent covid, COPD, RSD presents with poor oral intake. She is noted with thrush and follow up CT completed
2/6 decrease pulm nodules with response to therapy with extensive hepatic mets without change in size with central necrosis, no obstruction but distention of rectum with stool and asked to eval.
-fecal impaction with overflow diarrhea
-local rectal irritation with impaction
-decreased oral intakes with failure to thrive
-oral thrush
-stage IV adeno CA lung with mets to liver, lymph node, adrenal mets on carbo, Alimta, and Keytruda
-elevated LFT's
-anemia
-thrombocytopenia
hypokalemia
other medical problems:
-recent covid
-COPD
-RSD
-bladder CA
-uterine CA
PLAN:
apply local cream protective barrier to protect skin
remain on senna at HS, dulcolax BID and Miralax twice daily
cont Nystatin for oral thrush
limit narcotics as able
replete K
Check abdominal x-ray for fecal burden, if still with large fecal burden may require more enemas (MOM) q 8hrs.
Advance diet as per speech-language pathology recommendations
Subjective
Subjective
Date of Service: November 07, 2023
Patient states that she had a small bowel movement this morning then she started walking with physical therapy and it all broke loose and now she is 'moving like a Soham'. She states she had a very large bowel movement and feels like she fully
evacuated. She also saw speech-language pathology and her diet is also going to be advanced, which she is happy about. The patient denies any abdominal pain at the present time. Agrees to increase MiraLAX to twice a day given the fact that she is
on chronic narcotics.
Objective
Data Reviewed
Laboratory Data:
Laboratory Results
11/07/23 04:52
11/07/23 04:52
Laboratory Results
Magnesium Cancelled 11/07/23 05:35
Total Bilirubin 0.9 mg/dl (0.2-1.3) 11/05/23 04:54
AST 86 U/L (14-36) H 11/05/23 04:54
ALT 49 U/L (0-35) H 11/05/23 04:54
Alkaline Phosphatase 256 U/L (38-126) H 11/05/23 04:54
Vital Signs and I&O:
Vital Signs
Temp Pulse Resp BP Pulse Ox
97.7 F 102 16 109/64 97
11/07/23 11:10 11/07/23 11:10 11/07/23 11:10 11/07/23 11:10 11/07/23 11:10
I&O
11/06/23 11/07/23 11/08/23
06:59 06:59 06:59
Intake Total 1550 / 1550 420 / 420
Balance 1550 / 1550 420 / 420
Physical Exam
Physical Exam
HEENT: Moist mucous membranes
Cardiology: Normal Sinus Rhythm
Pulmonary: Clear (Anterior)
GI: Soft, Non Distended, Non Tender and Normal Bowel Sounds
Neuro: Non Focal
--- NOTE | 2023-11-07 12:50 | CM ---
Addendum entered by Crista Quevedo RN 11/07/23 16:22:
IMM signed and placed on chart. [facility] will to accept.
Original Note:
Reviewed the chart notes and spoke with the patient and her son at the bedside. Family requested referral be sent to [facility] for rehab. Referral and [facility] sent via [facility]. CM continues to be available to patient/family and is
monitoring medical plan for needs at discharge.
Plan: Discharge to SNF once medically stable and bed found. No precert required.
[2023-11-07] MEDS: MYCOSTATIN ORAL SUSPENSION PO (14:00)
[2023-11-07] MEDS: LOVENOX 40 MG SC (17:49)
[2023-11-07] MEDS: NORCO 5/325 1 TABLET PO (20:06)
[2023-11-07] MEDS: SENOKOT 17.1999999999999993 MG PO (21:04)
[2023-11-08] VITALS (9 sets, daily range): BP systolic 104–137; BP diastolic 58–76
[2023-11-08] MEDS: OXYCONTIN (CONTROLLED RELEASE) 10 MG PO ×3 (01:31→17:20)
[2023-11-08 05:33] LABS: Hematocrit 24.9 % (37.0-47.0); Hemoglobin 8.6 g/dL (12.0-16.0); Mean Corp Hgb Conc. 34.5 g/dL (33.0-37.0); Mean Corpuscular Hgb 31.5 pg (27.0-31.0); Mean Corpuscular Volume 91.2 fL (81.0-99.0); Mean Platelet Volume 10.5 fL (7.4-10.4); Platelet Count 87 10^3/uL (130-400); Red Blood Cell Count 2.73 10^6/uL (4.20-5.40); Red Cell Dist. Width 19.2 % (11.5-14.5); White Blood Cell Count 6.9 10^3/uL (4.8-10.8)
[2023-11-08 05:57] LABS: Blood Urea Nitrogen 8 mg/dl (7-17); Calcium 9.3 mg/dl (8.4-10.2); Carbon Dioxide 33 mmol/L (22-30); Chloride 106 mmol/L (98-107); Estimated Creatinine Clearance 67 ml/min; Glucose 97 mg/dl (70-99); Potassium 3.6 mmol/L (3.5-5.1); Sodium 137 mmol/L (135-145); eGFR > 60.00
[2023-11-08] MEDS: MYCOSTATIN ORAL SUSPENSION 5 ML PO ×3 (08:48→17:20)
[2023-11-08] MEDS: FOLVITE 1 MG PO (08:48)
[2023-11-08] MEDS: COLACE PO ×2 (08:53→19:25)
[2023-11-08] MEDS: MIRALAX PO ×2 (08:53→19:25)
--- NOTE | 2023-11-08 12:03 | W.PN.HOSP.TC ---
Today's Communication/Plan
-
d/c
Assessment / Plan
Assessment / Plan
Gen: NAD, appears severely malnourished and cachectic, awake and alert
Eyes: EOMI, PERRLA, no scleral icterus.
Neck: supple.
CV: continues to remain RRR, +S1/S2, no m/r/g.
Resp: continues to remain CTAB, no rales, wheezes, or rhonchi.
Abd: +BS, abdominal exam is limited due to tenderness to palpation with guarding (slightly improved from yesterday)
Skin: No rashes.
Neuro: CN 2-12 intact, non-focal.
Psych: Normal mood and affect
CT A/P: Compared to examination of October 08, 2023, interval decrease in size of multiple pulmonary nodules, suggesting positive response to therapy. Extensive hepatic metastatic disease. Hepatic masses are without significant interval change in
size, but many of these masses have a greater degree of central decreased density compared to previous CT, suggesting response to therapy and a degree of central necrosis. Stable right adrenal gland metastasis. No evidence for bowel obstruction or
free intraperitoneal air. Distention of the rectum with stool, transverse dimension of 6.6 cm. No convincing evidence for stercoral colitis.
Stage 4 adenocarcinoma along with significant liver metastases:
-Progress note from Dr. Reynolds reviewed. The pt was sent to the ER as she's not eating. His note states 'started talking about palliative care options.'
-Case discussed at length with Dr. Peoples. Patient wants to remain full code and continue cancer directed therapies. She may be a candidate for immunotherapy.
-s/p IVFs for hypercalcemia of malignancy. Zometa given 11/05/23.
-cont OxyContin 10mg PO Q8H
-IV Dilaudid stopped, transitioned to oxycodone PRN
-cont bowel regimen
Fecal impaction:
-appreciate GI
-bowel regimen
-enemas PRN
Other problems:
Hypokalemia, resolved
Hyponatremia, resolved
Severe protein calorie malnutrition
Oral thrush: cont Nystatin s/s
Anemia of chronic disease, trend Hb
Chronic LFT elevation due to metastatic disease
FULL/Lovenox
Medically cleared for d/c. Case management aware.
Anticipated Discharge: Today
Subjective/Interval History
-
Date of Service: November 08, 2023
No new complaints.
Objective Data
-
Labs:
Laboratory Results
11/08/23
05:13
WBC 6.9
Hgb 8.6 L
Hct 24.9 L
Plt Count 87 L
Sodium 137
Potassium 3.6
Chloride 106
Carbon Dioxide 33 H
BUN 8
Creatinine 0.2 L
Glucose 97
Calcium 9.3
Vital Signs:
Vital Signs
Temp Pulse Resp BP Pulse Ox
98.2 F 104 16 137/76 96
11/08/23 07:07 11/08/23 07:07 11/08/23 07:07 11/08/23 07:07 11/08/23 07:07
I&O
11/07/23 11/08/23 11/09/23
06:59 06:59 06:59
Intake Total 420 / 420 720 / 720
Balance 420 / 420 720 / 720
--- NOTE | 2023-11-08 12:42 | W.PN.ONC ---
Today's Communication / Plan
-
cont supportive care
bowel regimen stool softeners per GI
f/u Dr. Reynolds at [facility]
Impression
Impression
Stage IV adenocarcinoma of the lung w/ liver, lymph nodes, adrenal metastases (on Carbo/Alimta/Keytruda)
Severe protein calorie malnutrition
Constipation (acute on chronic)
Hypercalcemia (resolving s/p IVF)
Hypokalemia
Profound weakness
Failure to thrive
anemia/ thrombocytopenia
Plan
Plan
1. Advanced stage IV metastatic lung cancer with widespread metastatic disease.
-receiving first-line chemotherapy with carboplatin + Alimta + pembrolizumab immunotherapy
-anemia/ thrombocytopenia - post treatment - 10/29
-f/u Dr. Aragon at [facility]
2. Constipation - GI following
continue stool softener/ bowel regimen
Subjective/Objective
Subjective/Objective
feels slightly better, no fevers
Vital Signs:
Vital Signs
Temp Pulse Resp BP Pulse Ox
98.2 F 104 16 137/76 96
11/08/23 07:07 11/08/23 07:07 11/08/23 07:07 11/08/23 07:07 11/08/23 07:07
Lab Results:
Laboratory Data
WBC 6.9 10^3/uL (4.8-10.8) 11/08/23 05:13
Hgb 8.6 g/dL (12.0-16.0) L 11/08/23 05:13
Plt Count 87 10^3/uL (130-400) L 11/08/23 05:13
eGFR > 60.00 11/08/23 05:13
--- NOTE | 2023-11-08 15:00 | CM ---
CM following re: discharge planning.
Reviewed pt's chart, met with pt. Pt's son Ezio and daughter in law at bedside.
According to pt will be ready for discharge tomorrow. Both pt and her son are aware, expressed their agreement with discharge. IMM reviewed, placed on chart, pt has a copy.
Per CM note, [facility] has accepted the pt. CM spoke to [facility] liaison and she stated that [facility] has denied a referral and [facility] has offered a bed.
CM discussed it with pt and her family regarding [facility] and they stated that [facility] even better choice because it is closer where family lives.
[facility] nursing report: [phone]
Discharge instructions fax: [phone]
will arrange transportation for tomorrow 11/09/23 with requested pickle cutter time 11:00 a.m. [facility] and left with .
Both pt, her family, [facility] liaison are aware of discharge date and time.
D/C plan: [facility] tomorrow 11/09/23.
[2023-11-08] MEDS: LOVENOX 40 MG SC (17:20)
[2023-11-08] MEDS: SENOKOT PO (19:25)
[2023-11-08] MEDS: NORCO 5/325 1 TABLET PO (20:03)
[2023-11-08] MEDS: MYCOSTATIN ORAL SUSPENSION PO (21:11)
[2023-11-09] MEDS: OXYCONTIN (CONTROLLED RELEASE) 10 MG PO ×2 (02:13→10:27)
[2023-11-09 03:49] VITALS: BP 109/64
[2023-11-09 05:56] LABS: Hematocrit 25.9 % (37.0-47.0); Mean Corp Hgb Conc. 34.7 g/dL (33.0-37.0); Mean Corpuscular Hgb 31.8 pg (27.0-31.0); Mean Corpuscular Volume 91.5 fL (81.0-99.0); Mean Platelet Volume 9.9 fL (7.4-10.4); Platelet Count 81 10^3/uL (130-400); Red Blood Cell Count 2.83 10^6/uL (4.20-5.40); Red Cell Dist. Width 19.2 % (11.5-14.5); White Blood Cell Count 6.7 10^3/uL (4.8-10.8)
[2023-11-09 06:17] LABS: Blood Urea Nitrogen 9 mg/dl (7-17); Calcium 9.1 mg/dl (8.4-10.2); Carbon Dioxide 30 mmol/L (22-30); Chloride 104 mmol/L (98-107); Estimated Creatinine Clearance 67 ml/min; Glucose 89 mg/dl (70-99); Potassium 3.4 mmol/L (3.5-5.1); Sodium 134 mmol/L (135-145); eGFR > 60.00
[2023-11-09 07:25] VITALS: BP 112/67
--- NOTE | 2023-11-09 07:38 | W.PN.HOSP.TC ---
Today's Communication/Plan
-
d/c
Assessment / Plan
Assessment / Plan
Gen: remains NAD, appears severely malnourished and cachectic, awake and alert
Eyes: EOMI, PERRLA, no scleral icterus.
Neck: remains supple.
CV: RRR, +S1/S2, no m/r/g.
Resp: CTAB, no rales, wheezes, or rhonchi.
Abd: +BS, abdominal exam is limited due to tenderness to palpation with guarding (similar improved from yesterday)
Skin: No rashes.
Neuro: CN 2-12 intact, non-focal.
Psych: Normal mood and affect
CT A/P: Compared to examination of October 08, 2023, interval decrease in size of multiple pulmonary nodules, suggesting positive response to therapy. Extensive hepatic metastatic disease. Hepatic masses are without significant interval change in
size, but many of these masses have a greater degree of central decreased density compared to previous CT, suggesting response to therapy and a degree of central necrosis. Stable right adrenal gland metastasis. No evidence for bowel obstruction or
free intraperitoneal air. Distention of the rectum with stool, transverse dimension of 6.6 cm. No convincing evidence for stercoral colitis.
Stage 4 adenocarcinoma along with significant liver metastases:
-Progress note from Dr. Reynolds reviewed. The pt was sent to the ER as she's not eating. His note states 'started talking about palliative care options.'
-Case discussed at length with Dr. Peoples. Patient wants to remain full code and continue cancer directed therapies. She may be a candidate for immunotherapy.
-s/p IVFs for hypercalcemia of malignancy. Zometa given 11/05/23.
-cont OxyContin 10mg PO Q8H
-IV Dilaudid stopped, transitioned to oxycodone PRN
-cont bowel regimen
Fecal impaction:
-appreciate GI
-bowel regimen
-enemas PRN
Other problems:
Hypokalemia, resolved
Hyponatremia, resolved
Severe protein calorie malnutrition
Oral thrush: cont Nystatin s/s
Anemia of chronic disease, trend Hb
Chronic LFT elevation due to metastatic disease
FULL/Lovenox
Medically cleared for d/c. Case management aware.
Total time spent on d/c = 31 min. This included today's physical exam, progress note, review of laboratory and diagnostic data, preparation of discharge documents and prescriptions, and discussions about the pt's hospital course and discharge plan
with the patient and other medical assistant supervisor involved in the patient's care.
Anticipated Discharge: Today
Subjective/Interval History
-
Date of Service: November 09, 2023
No new complaints.
Objective Data
-
Labs:
Laboratory Results
11/09/23
05:42
WBC 6.7
Hgb 9.0 L
Hct 25.9 L
Plt Count 81 L
Sodium 134 L
Potassium 3.4 L
Chloride 104
Carbon Dioxide 30
BUN 9
Creatinine 0.3 L
Glucose 89
Calcium 9.1
Vital Signs:
Vital Signs
Temp Pulse Resp BP Pulse Ox
98.1 F 99 14 109/64 95
11/09/23 03:49 11/09/23 03:49 11/09/23 03:49 11/09/23 03:49 11/09/23 03:49
I&O
11/08/23 11/09/23 11/10/23
06:59 06:59 06:59
Intake Total 720 / 720 960 / 960
Balance 720 / 720 960 / 960
[2023-11-09] MEDS: FOLVITE 1 MG PO (08:29)
[2023-11-09] MEDS: COLACE 100 MG PO (08:29)
[2023-11-09] MEDS: MYCOSTATIN ORAL SUSPENSION 5 ML PO (08:29)
[2023-11-09] MEDS: MIRALAX PO (08:30)
--- NOTE | 2023-11-09 10:31 | CM ---
CM confirmed with community relations assistant filler picker time for 11AM. CM confirmed with [facility] at [facility] can accept today. CM met with pt at bedside and spoke with son Tommie. All aware of dc plan and in agreement at this time.
--- NOTE | 2023-11-09 12:48 | W.DCSUMMARY ---
Discharge Summary
Discharge Data
Date of Admission: 11/06/23
Date of Discharge: 11/09/23
-
Pending Results: No
Hospital Course
Primary diagnoses:
Cancer related pain
Hypercalcemia of malignancy
Anorexia
Fecal impaction
Secondary diagnoses:
Hypokalemia
Hyponatremia
Severe protein calorie malnutrition
Oral thrush
Anemia of chronic disease
Chronic liver function test elevation due to metastatic disease
Consultants:
Gastroenterology
Oncology
Imaging:
CT A/P: Compared to examination of October 08, 2023, interval decrease in size of multiple pulmonary nodules, suggesting positive response to therapy. Extensive hepatic metastatic disease. Hepatic masses are without significant interval change in
size, but many of these masses have a greater degree of central decreased density compared to previous CT, suggesting response to therapy and a degree of central necrosis. Stable right adrenal gland metastasis. No evidence for bowel obstruction or
free intraperitoneal air. Distention of the rectum with stool, transverse dimension of 6.6 cm. No convincing evidence for stercoral colitis.
73-year-old female who presented with severe weakness and anorexia is on an H&P done on admission. Hospital course per problem list
Stage 4 adenocarcinoma along with significant liver metastases: Patient was sent to the hospital by Dr. Reynolds as she was not eating. His note stated 'started talking about palliative care options.' Patient was seen in consultation by oncology,
Dr. Peoples.� She wanted to remain full code and continue cancer directed therapies.� She may be a candidate for immunotherapy. Patient was supported with IV fluids. IV fluids were also given for hypercalcemia of malignancy. Zometa was given on
November 05, 2023. Her calcium improved. She was started on OxyContin 10 mg every 8 hours. She was given IV Dilaudid as needed and was transitioned to oral oxycodone as needed. She was placed on a bowel regimen.
Fecal impaction: Patient was seen in consultation by GI. She was placed on bowel regimen and had an enema. Her fecal impaction resolved.
Discharge Plan
-
Patient Disposition: [facility]
Discharge Diagnosis/Procedures: cancer related pain, hypercalcemia of malignancy
Condition: Fair
Diet: No restrictions
Activity: As tolerated
Driving Restrictions: As prior to admission
Blood Work: CMP, Mg, and CBC in 1 week, script from PCP
Referrals:
Mayco Roth MD [Family Provider] - in less than 1 week
Prescriptions:
New
sennosides [Senna Lax] 8.6 mg Tablet
17.2 mg PO HS Qty: 0 0RF
nystatin 100,000 unit/mL Suspension
5 ml PO QID Qty: 0 0RF
polyethylene glycol 3350 [HealthyLax] 17 gram Powder In Packet
17 g PO BID Qty: 0 0RF
mineral oil [Fleet Mineral Oil] Enema
133 ml OH DAILYPRN PRN (Reason: constipation) Qty: 0 0RF
docusate sodium 100 mg Capsule
100 mg PO BID Qty: 0 0RF
oxycodone 5 mg Tablet
5 mg PO Q4HPRN PRN (Reason: breakthrough pain) Qty: 4 0RF
oxycodone [OxyContin] 10 mg Tablet,Oral Only,Ext.Rel.12 Hr
10 mg PO Q8H Qty: 6 0RF
Continued
dexamethasone 4 mg Tablet
4 mg PO UD
Rx Instructions:
11/04/2023, take 4 mg BID on day before Chemo and day after.
folic acid 1 mg Tablet
1 mg PO DAILY
polyethylene glycol 3350 [Miralax] 17 gram Powder In Packet
17 g PO DAILY PRN (Reason: constipation)
Prolia 60 mg/mL Syringe
60 mg SC [id number]
Keytruda
1 dose IV Q3W
Patient Comments:
11/04/2023, pt. gets this med. through outpatient [facility].
Discontinued
hydrocodone-acetaminophen 5-325 mg tablet
1 tab PO Q6HPRN PRN (Reason: moderate to severe pain)
Patient Comments:
11/04/2023, pt. filled this med. on 10/29/2023 for 60 tablets according to PDMP.
Discharge Orders:
Discharge Patient (As Directed); Ordered 11/09/23
Ordered By: Shawn Zaragoza
Discharge Date and Time
Discharge Date/Time: 11/09/23 11:15
== END 2023-11-09 11:15 | DRG 180 ==
LOC: 2 NORTH 08:38
PROVIDERS: Physician Assistant; Registered Nurse; ADMITTING PHYSICIAN Internal Medicine; CONSULT PHYSICIAN Internal Medicine Gastroenterology; EMERGENCY PHYSICIAN Emergency Medicine; FAMILY PHYSICIAN Internal Medicine Geriatric Medicine; OTHER PHYSICIAN Internal Medicine Hematology & Oncology
DX: C34.90 Malignant neoplasm of unspecified part of unspecified bronchus or lung (principal); E43 Unspecified severe protein-calorie malnutrition; C79.70 Secondary malignant neoplasm of unspecified adrenal gland; E87.1 Hypo-osmolality and hyponatremia; B37.0 Candidal stomatitis; C78.7 Secondary malignant neoplasm of liver and intrahepatic bile duct; Z68.1 Body mass index [BMI] 19.9 or less, adult; J44.9 Chronic obstructive pulmonary disease, unspecified; K21.9 Gastro-esophageal reflux disease without esophagitis; I10 Essential (primary) hypertension; E78.00 Pure hypercholesterolemia, unspecified; Z90.711 Acquired absence of uterus with remaining cervical stump; E86.0 Dehydration; R62.7 Adult failure to thrive; D63.8 Anemia in other chronic diseases classified elsewhere; Z87.891 Personal history of nicotine dependence; K56.41 Fecal impaction; E87.6 Hypokalemia; D69.6 Thrombocytopenia, unspecified; G89.3 Neoplasm related pain (acute) (chronic); E83.52 Hypercalcemia; L89.151 Pressure ulcer of sacral region, stage 1
CPT/HCPCS: 74018; 74177; 80048; 80053; 82040; 82550; 83735; 85025; 85027; 97162; 97166; 97530; 99285; J3489; Q9967